=== PATIENT | male | born 1990 | race Caucasian/White ===

== ENCOUNTER 2016-05-10 07:01 | Inpatient (IN) | payer OTHER ==
[2016-05-10] VITALS (7 sets, daily range): BP systolic 104–132; BP diastolic 60–76; PULSE 52–111; RESP 16–20; TEMP 97.2–98.3; O2SAT 96–100
[~2016-05-10] VITALS: Ht 167.6 cm; Wt 84.2 kg
[2016-05-10] MEDS ORDERED: MORPHINE SULFATE 8 MG/ML INJ ONE ×2 (07:04→07:12)
[2016-05-10] MEDS ORDERED: ceFAZolin 2 GM PREMIX 50 ML ONE (07:05)
[2016-05-10] MEDS ORDERED: DIPHTH/TETANUS/ACEL PERTUSSIS (BOOSTER) 0.5 ML VIAL/PFS IM ONE ×2 (07:05→08:13)
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
[2016-05-10 07:24] LABS: AUTOMATED NEUTROPHIL # 6.7 TH/MM3 (1.8-7.7); BASOPHIL % 0.3 % (0.0-2.0); EOSINOPHIL % 0.5 % (0.0-4.0); HEMATOCRIT 43.3 % (39.0-51.0); HEMO FLAGS DIFF FINAL; I-STAT POTASSIUM 3.8 MMOL/L (3.5-4.9); LYMPHOCYTE # 2.1 TH/MM3 (1.0-4.8); MEAN CELL VOLUME 89.2 FL (80.0-100.0); MEAN CORPUSCULAR HEMOGLOBIN 31.3 PG (27.0-34.0); MEAN CORPUSCULAR HGB CONC 35.1 % (32.0-36.0); NEUT % 70.2 % (16.0-70.0); PLATELET COUNT 231 TH/MM3 (150-450); RED BLOOD COUNT 4.85 MIL/MM3 (4.50-5.90); RED CELL DISTRIBUTION WIDTH 13.1 % (11.6-17.2); WHITE BLOOD COUNT 9.6 TH/MM3 (4.0-11.0)
[2016-05-10 07:33] LABS: APTT (PATIENT) 24.7 SEC (24.3-30.1); INTERNATIONAL NORMALIZED RATIO 1.1 RATIO; PROTHROMBIN TIME - PATIENT 12.1 SEC (9.8-11.6)
[2016-05-10] MEDS ORDERED: IOHEXOL 350 MG/ML 10 ML VIAL (for RAD DIAG) IV ONE (07:38)
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
[2016-05-10] MEDS ORDERED: MORPHINE SULFATE 4 MG/ML INJ IV ONE (08:15)
[2016-05-10] MEDS ORDERED: SODIUM CHLORIDE 0.9% FLUSH 10 ML FLUSH IV FLUSH PRN (08:15)
[2016-05-10] MEDS ORDERED: ceFAZolin 2 GM PREMIX 50 ML IV ONE (08:15)
[2016-05-10] MEDS ORDERED: ACETAMINOPHEN/HYDROcodone 325 MG/5 MG TAB PO PRN (08:15)
[2016-05-10] MEDS ORDERED: ONDANSETRON HCL 4 MG/2 ML VIAL IV PRN (08:15)
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
[2016-05-10] MEDS: SODIUM CHLOR 0.9% 1000 ML INJ 1,000 ML IV SCH ×2 (10:19→21:11)
[2016-05-10] MEDS: PANTOPRAZOLE SODIUM 40 MG VIAL IVP SCH (10:20)
[2016-05-10] MEDS: ACETAMINOPHEN/HYDROcodone 325 MG/5 MG TAB PO PRN ×4 (10:26→23:11)
[2016-05-10] MEDS: ceFAZolin 2 GM PREMIX 50 ML IV SCH ×2 (14:50→23:12)
[2016-05-11] VITALS: BP 126/56; PULSE 83; RESP 16; TEMP 96.4; O2SAT 98
[2016-05-11] MEDS: ACETAMINOPHEN/HYDROcodone 325 MG/5 MG TAB PO PRN ×3 (03:54→12:19)
[2016-05-11] MEDS: ceFAZolin 2 GM PREMIX 50 ML IV SCH (05:16)
[2016-05-11] MEDS: SODIUM CHLOR 0.9% 1000 ML INJ 1,000 ML IV SCH (05:16)
[2016-05-11 08:00] VITALS: BP 136/64; PULSE 59; RESP 15; TEMP 96.7; O2SAT 99
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
[2016-05-11] MEDS ORDERED: DOCUSATE SODIUM 50 MG/SENNA 8.6 MG TAB PO SCH (09:00)
[2016-05-11] MEDS: PANTOPRAZOLE SODIUM 40 MG VIAL IVP SCH (09:00)
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
[2016-05-11 09:49] LABS: AUTOMATED NEUTROPHIL # 5.2 TH/MM3 (1.8-7.7); BASOPHIL % 0.4 % (0.0-2.0); EOSINOPHIL # 0.1 TH/MM3 (0-0.4); EOSINOPHIL % 0.9 % (0.0-4.0); HEMATOCRIT 43.9 % (39.0-51.0); HEMO FLAGS DIFF FINAL; LYMPHOCYTE # 2.1 TH/MM3 (1.0-4.8); MEAN CELL VOLUME 89.2 FL (80.0-100.0); MEAN CORPUSCULAR HEMOGLOBIN 31.8 PG (27.0-34.0); MEAN CORPUSCULAR HGB CONC 35.7 % (32.0-36.0); MONO % 8.3 % (0.0-8.0); NEUT % 64.4 % (16.0-70.0); PLATELET COUNT 220 TH/MM3 (150-450); RED BLOOD COUNT 4.92 MIL/MM3 (4.50-5.90); RED CELL DISTRIBUTION WIDTH 13.2 % (11.6-17.2)
[2016-05-11] MEDS ORDERED: HYDR-3516 PO (11:57)
[2016-05-11 12:00] VITALS: BP 132/62; PULSE 58; RESP 15; TEMP 96.9; O2SAT 98
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
== END 2016-05-11 12:55 | disposition home or self-care (01) | DRG 605 ==
LOC: NEPI 07:01 → NEDA 08:09 → OBSVTOIN 08:16 → EDBD 08:16 → NEDA 11:19 → N07B 15:54
PROVIDERS: ADMIT Surgery; ATTEND Surgery
DX: S31.111A Laceration without foreign body of abdominal wall, left upper quadrant without penetration into peritoneal cavity, initial encounter (principal); Y92.410 Unspecified street and highway as the place of occurrence of the external cause; X99.9XXA Assault by unspecified sharp object, initial encounter
CPT/HCPCS: 71010; 71260; 74177; 82435; 82565; 82947; 84132; 84295; 84520; 85025; 85610; 85730; 86850; 86900; 86901; 90471; 90715; 96374; 96375; 99291; A0431-QM-SH; A0436-QM-SH; C9113; G0390; J0690; J2270; J2405; J7030; Q9967

== ENCOUNTER 2016-05-12 20:40 | Emergency (ER) | payer OTHER ==
[~2016-05-12] VITALS: Ht 167.6 cm; Wt 77.2 kg
[~2016-05-12 20:40] MED LIST: HYDR-3516 PO
[2016-05-12 20:42] VITALS: BP 130/78; PULSE 65; RESP 16; TEMP 97.8; O2SAT 97
[2016-05-12 21:56] LABS: AUTOMATED NEUTROPHIL # 4.9 TH/MM3 (1.8-7.7); BASOPHIL % 0.3 % (0.0-2.0); EOSINOPHIL # 0.1 TH/MM3 (0-0.4); EOSINOPHIL % 0.8 % (0.0-4.0); HEMATOCRIT 42.3 % (39.0-51.0); HEMO FLAGS DIFF FINAL; LYMPH % 23.9 % (9.0-44.0); LYMPHOCYTE # 1.8 TH/MM3 (1.0-4.8); MEAN CELL VOLUME 89.7 FL (80.0-100.0); MEAN CORPUSCULAR HEMOGLOBIN 30.7 PG (27.0-34.0); MEAN CORPUSCULAR HGB CONC 34.2 % (32.0-36.0); MONO % 9.1 % (0.0-8.0); NEUT % 65.9 % (16.0-70.0); PLATELET COUNT 226 TH/MM3 (150-450); RED BLOOD COUNT 4.72 MIL/MM3 (4.50-5.90); RED CELL DISTRIBUTION WIDTH 13.2 % (11.6-17.2); WHITE BLOOD COUNT 7.4 TH/MM3 (4.0-11.0)
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
[2016-05-12 22:28] LABS: ANION GAP 9 MEQ/L (5-15); AST (GOT) 23 U/L (15-37); BICARBONATE 27.5 MEQ/L (21.0-32.0); BLOOD UREA NITROGEN 18 MG/DL (7-18); CHLORIDE 106 MEQ/L (98-107); GLOMERULAR FILTRATION RATE 68 ML/MIN (>89); POTASSIUM 3.7 MEQ/L (3.5-5.1); SODIUM (NA) 142 MEQ/L (136-145)
[2016-05-12 22:31] LABS: ALKALINE PHOSPHATASE 65 U/L (45-117); ALT (GPT) 25 U/L (12-78); TOTAL BILIRUBIN ADULT 0.4 MG/DL (0.2-1.0)
[2016-05-13] VITALS: BP 130/57; PULSE 80; RESP 16; O2SAT 98
[2016-05-13] MEDS ORDERED: ACETAMINOPHEN/HYDROcodone 325 MG/5 MG TAB PO ONE (00:45)
[2016-05-13 03:17] LABS: AMPHETAMINE, URINE NEG (NEG); BARBITURATES, URINE NEG (NEG); COCAINE, URINE NEG (NEG)
[2016-05-13 06:27] VITALS: BP 124/65; PULSE 59; RESP 18; O2SAT 97
[2016-05-13] MEDS ORDERED: IBUPROFEN 600 MG TAB PO ONE (09:30)
[2016-05-13 11:02] VITALS: BP 119/80; PULSE 60; PULSE 77; RESP 18; O2SAT 95; O2SAT 96
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
== END 2016-05-13 12:42 | disposition home or self-care (01) ==
LOC: NEPE 20:40 → NEPJ 05-13 12:42
DX: F32.9 Major depressive disorder, single episode, unspecified (principal); F43.20 Adjustment disorder, unspecified; Z87.891 Personal history of nicotine dependence
CPT/HCPCS: 80053; 80307; 85025; 99283